=== PATIENT | female | born 1990 | race American Indian/Alaskan Native ===

== ENCOUNTER 2017-09-04 05:23 | Observation (INO) | payer MEDICAID, OTHER ==
--- NOTE | 2017-09-03 14:15 | History and Physical Report ---
History of Present Illness Date of examination: 09/03/17 Chief complaint: incompetent cervix History of present illness: Pt is a 27 year old -Danish female RADHA 03/10/18 at 13w2d who presents for Bell Cerclage placement secondary to h/o cervical incompetence in a previous . Past History Past Medical History: seizure (2014 (two) and in childhood; previously on Keppra ) Past Surgical History: TEACHING ARTIST/uterine surgery (cerclage in 2007) Family/Genetic History: none Social history: no significant social history - Obstetrical History Expected Date of Delivery: 03/10/18 Actual Gestation: 13 Week(s) 1 Day(s) : 4 Para: 0 Hx # Term Pregnancies: 0 Number of Pregnancies: 1 Spontaneous Abortions: 0 Induced : 2 Number of Living Children: 0 Medications and Allergies Allergies Allergy/AdvReac Type Severity Reaction Status Date / Time Latex, Natural Rubber Allergy Rash Verified 12/03/14 13:40 Home Medications Medication Instructions Recorded Confirmed Last Taken Type Levofloxacin [Levaquin] 750 mg PO QDAY #5 tablet 12/06/14 Unknown Rx levETIRAcetam [Keppra TAB] 500 mg PO BID #60 tablet 12/06/14 Unknown Rx Review of Systems All systems: negative - Physical Exam Breasts: Positive: deferred Cardiovascular: Regular rate Lungs: Positive: Clear to auscultation Abdomen: Positive: soft Uterus: Positive: enlarged (gravid ) Extremities: Positive: normal - Obstetrical FHR: auscultation normal Results All other labs normal. Assessment and Plan A: IUP at 13w2d Incompetent Cervix H/o Seizures P: Proceed with Bell Cerclage and other indicated procedures.
[2017-09-04] MEDS ORDERED: LACTATED RINGERS 1,000 ML IV SCH (06:00)
[2017-09-04 06:37] LABS: Hematocrit 37.3 % (30.3-42.9); Hemoglobin 12.2 gm/dl (10.1-14.3); Mean Corpuscular HGB Conc 33 % (30-34); Mean Corpuscular Hemoglobin 27 pg (28-32); Mean Corpuscular Volume 82 fl (79-97); Platelet Count 290 K/mm3 (140-440); Red Blood Count 4.54 M/mm3 (3.65-5.03); Red Cell Distribution Width 15.5 % (13.2-15.2)
[2017-09-04] MEDS ORDERED: BICITRA ONE (07:22)
[2017-09-04] MEDS ORDERED: REGLAN ONE (07:22)
[2017-09-04] MEDS ORDERED: PEPCID IV ONE (07:23)
--- NOTE | 2017-09-04 07:24 | Anesthesia Day of Surgery ---
Anesthesia Day of Surgery - Day of Surgery Patient Examined: Yes Patient H&P Reviewed: Yes Patient is NPO: Yes
--- NOTE | 2017-09-04 07:24 | Anesthesia Consultation ---
Anesthesia Consult and Med Hx Date of service: 09/04/17 - Airway Anesthetic Teeth Evaluation: Good ROM Head & Neck: Adequate Mental/Hyoid Distance: Adequate Mallampati Class: Class II Intubation Access Assessment: Probably Good - Pre-Operative Health Status ASA Pre-Surgery Classification: ASA3 Proposed Anesthetic Plan: Spinal - Pulmonary Hx Asthma: No - Cardiovascular System Hx Hypertension: No - Central Nervous System Hx Seizures: No Hx Psychiatric Problems: No - Endocrine Hx Renal Disease: No Hx Hypothyroidism: No Hx Hyperthyroidism: No - Hematic Hx Anemia: No Hx Sickle Cell Disease: No - Other Systems Hx Alcohol Use: No Hx Obesity: Yes (BMI 42.4) - Additional Comments Anesthesia Medical History Comments: cervical incompetence
[2017-09-04] MEDS ORDERED: BICITRA PO ONE (08:00)
[2017-09-04] MEDS ORDERED: SODIUM CHLORIDE FLUSH SYRINGE 10 ML IV PRN (08:00)
[2017-09-04] MEDS ORDERED: PEPCID IV NR (08:00)
[2017-09-04] MEDS ORDERED: REGLAN IV NR (08:00)
[2017-09-04] MEDS ORDERED: NEO SYNEPHRINE/NS Syringe(OR USE) IV ONE ×3 (08:32)
[2017-09-04] MEDS ORDERED: NACL 0.9% 1000 ML 1,000 ML ONE (08:37)
[2017-09-04] MEDS ORDERED: WATER FOR IRRIG STERILE IR ONE (08:40)
[2017-09-04] MEDS ORDERED: PHENERGAN PR PRN (09:00)
[2017-09-04] MEDS ORDERED: ZOFRAN IV PRN (09:00)
[2017-09-04] MEDS ORDERED: NARCAN 0.4 MG/1 ML IV PRN (09:00)
[2017-09-04] MEDS ORDERED: PHENERGAN PO PRN (09:00)
--- NOTE | 2017-09-04 10:27 | Post Operative Note ---
Pre-op diagnosis: 1) IUP at 13w2d 2) Incompetent Cervix Post-op diagnosis: same Findings: 1) Cervical length approximately 2 cm
--- NOTE | 2017-09-04 10:30 | Ultrasound Report ---
ULTRASOUND OB LIMITED History: well-being, check for viability Technique: Transabdominal ultrasound with Doppler interrogation. Gestation: Single Heart Rate: 159 BPM
--- NOTE | 2017-09-04 10:45 | Operative Report ---
Operative Report Operative Report: Date of procedure: September 04, 2017 Preoperative diagnosis: 1) IUP at 13w2d 2) Incompetent Cervix 3) Morbid Obesity Postoperative diagnosis: Same Procedure: Bell Cerclage Surgeon: Erin Subramanian M.D. Findings: External os 1 cm dilated on speculum exam Anesthesia: Spinal EBL: 50 mL Urine output: 200 mL Specimens: None Drains: Schuler to gravity Complications: None. Counts correct 2 Disposition: Stable to recovery Indication for procedure: The patient is a 27-year-old -Montenegr[place] female at 13w2d who presents for cerclage placement secondary to history of incompetent cervix. Operation in detail: After the risks, benefits, alternatives and complications of the procedure were explained to the patient, she gave informed consent for the procedure. FHTs were documented prior to the procedure. She was subsequently taken to the operating room with her IV noted to be running. Spinal anesthesia was administered without some difficulty. She was then placed in high lithotomy position and prepped and draped in normal sterile fashion. A timeout was performed. A schuler catheter was placed to drain the bladder. An open-sided speculm was placed into the patient's vagina for adequate visualization of the cervix, with intermittent use of Onel retractors for additional exposure. Ring forceps were placed on the anterior and posterior lips of the cervix. A #1 Prolene suture was inserted through the cervical mucosa starting at the 12 o'clock position. A circumferential stitch was placed in a purse-string fashion ending at the 12 o'clock position. Multiple knots of the #1 Prolene suture were tied to secure the suture. There is no evidence of any active bleeding or leakage of fluid. All instruments were then removed from the vagina. The procedure was ended. The patient was then placed in the dorsal supine position and taken to the recovery room in stable condition. All instrument, lap and needle counts were correct 2. An ultrasound has been ordered to follow the procedure.
--- NOTE | 2017-09-04 10:45 | Short Stay Summary ---
Short Stay Documentation Date of service: 09/04/17 - History H&P: dictated Social history: no significant social history - Allergies and Medications Current Medications: Allergies Latex, Natural Rubber Allergy (Verified 12/03/14 13:40) Rash Home Medications Medication Instructions Recorded Confirmed Last Taken Type Levofloxacin [Levaquin] 750 mg PO QDAY #5 tablet 12/06/14 Unknown Rx levETIRAcetam [Keppra TAB] 500 mg PO BID #60 tablet 12/06/14 Unknown Rx HYDROcodone/APAP 5-325 [[place] 1 each PO Q6HR PRN #30 tablet 09/04/17 Unknown Rx 5/325] Active Medications Lactated Ringer's (Lactated Ringers) 1,000 mls @ 100 mls/hr IV DIRECT OLMAN Last Admin: 09/04/17 07:15 Dose: 100 mls/hr Naloxone HCl (Narcan 0.4 Mg/1 Ml) 0.2 mg IV Q2MIN PRN PRN Reason: Res Rate </= 8 or 02 SAT < 92% Ondansetron HCl (Zofran) 4 mg IV Q8H PRN PRN Reason: Nausea And Vomiting Promethazine HCl (Phenergan) 25 mg PO Q6H PRN PRN Reason: Nausea And Vomiting Promethazine HCl (Phenergan) 25 mg OK Q6H PRN PRN Reason: Nausea And Vomiting Sodium Chloride (Sodium Chloride Flush Syringe 10 Ml) 10 ml IV PRN PRN PRN Reason: flush - Physical exam Breasts: deferred - Brief post op/procedure progress note Date of procedure: 09/04/17 Pre-op diagnosis: 1) IUP at 13w2d 2) Incompetent Cervix Post-op diagnosis: same Procedure: Bell Cerclage Anesthesia: spinal Findings: External os 1 cm dilated on speculum exam Surgeon: BOWEN SUBRAMANIAN Estimated blood loss: 50-100ml (50 mL) Pathology: none Condition: stable - Hospital course Hospital course: The patient was admitted for Bell cerclage placement and tolerated the procedure well. She had an ultrasound after the procedure which showed viability. She was observed until she is able to ambulate and void without difficulty. She will follow-up in the office in [address] Subramanian. - Disposition Condition at discharge: Stable Disposition: DC- TO HOME OR SELFCARE - Discharge Diagnoses (1) H/O incompetent cervix, currently Status: Acute (2) Status: Acute Qualifiers: Weeks of gestation: 13 weeks Qualified Code(s): Z3A.13 - 13 weeks gestation of (3) Morbid obesity Status: Acute Short Stay Discharge Plan Activity: other (Nothing in vagina for remainder of ; no baths for at least 4 weeks ) Weight Bearing Status: Full Weight Bearing (though pt is to be on modified bed rest) Diet: regular Additional Instructions: You have been scheduled by your provider for a follow up appointment on Tuesday, September 12, 2017 at 2:15pm. Please make sure to keep this appointment. Spotting, cramping or painful urination are normal for 3-5 days after the procedure. If these symptoms are severe or persist longer than 5 days, please call your doctor. Follow up with: BOWEN SUBRAMANIAN MD [Primary Care Provider] - 7 Days Prescriptions: HYDROcodone/APAP 5-325 [[place] 5/325] 1 each PO Q6HR PRN #30 tablet PRN Reason: Pain
[2017-09-04] MEDS ORDERED: NORCO 5/325 PO PRN (11:30)
[2017-09-04 13:06] VITALS: BP 101/53
== END 2017-09-04 15:24 | disposition home or self-care (01) ==
LOC: APU 05:24 → LD 09:50
PROVIDERS: ADMIT Obstetrics & Gynecology; ATTEND Obstetrics & Gynecology
DX: O34.31 Maternal care for cervical incompetence, first trimester (principal); E66.01 Morbid (severe) obesity due to excess calories; Z68.41 Body mass index [BMI] 40.0-44.9, adult; Z3A.13 13 weeks gestation of pregnancy
CPT/HCPCS: 36415; 59320; 76815; 85027; 86850; 86900; 86901; G0378; G0379; J2765; J7030; J7120; J2370; J2590

== ENCOUNTER 2017-09-23 16:50 | Emergency (ER) | payer MEDICAID ==
[2017-09-23 18:59] VITALS: BP 124/45
[2017-09-23 19:13] LABS: Basophils % (Auto) 0.4 % (0.0-1.8); Eosinophils # (Auto) 0.2 K/mm3 (0.0-0.4); Eosinophils % (Auto) 1.4 % (0.0-4.3); Hematocrit 36.3 % (30.3-42.9); Lymphocytes # (Auto) 2.1 K/mm3 (1.2-5.4); Lymphocytes % (Auto) 18.3 % (13.4-35.0); Mean Corpuscular HGB Conc 33 % (30-34); Mean Corpuscular Hemoglobin 27 pg (28-32); Mean Corpuscular Volume 81 fl (79-97); Monocytes # (Auto) 0.8 K/mm3 (0.0-0.8); Monocytes % (Auto) 7.1 % (0.0-7.3); Platelet Count 284 K/mm3 (140-440); Red Blood Count 4.47 M/mm3 (3.65-5.03); Red Cell Distribution Width 14.8 % (13.2-15.2)
[2017-09-23 19:25] LABS: Alanine Aminotransferase 32 units/L (7-56); Albumin 3.5 g/dL (3.9-5); BUN/Creatinine Ratio 14; Blood Urea Nitrogen 7 mg/dL (7-17); Hemolysis Index 4
[2017-09-23 21:14] LABS: Bacteria,Urine 4+ /HPF (Negative); Bilirubin,Urine NEG (Negative); Blood,Urine NEG (Negative); Color,Urine Yellow (Yellow); Mucus,Urine 1+ /HPF; Protein,Urine <15 mg/dL mg/dL (Negative); Urobilinogen,Urine < 2.0 mg/dL (<2.0)
--- NOTE | 2017-09-24 00:11 | Ultrasound Report ---
FINAL REPORT EXAM: US OB TRANSVAGINAL HISTORY: 16 weeks post circlage cramping TECHNIQUE: Transvaginal imaging was obtained of the pelvis along with Doppler interrogation of the uterus. FINDINGS: There is a single viable intrauterine with an estimated gestational age of 15 weeks 4 days based on sonographic criteria. The heart rate is 174 BPM. The gestational sac is normal in configuration. The placenta is posterior in position and is grade 0. The fetus is in cephalic presentation. The cervical length is 3.4 cm and is closed. Complete survey of organs was not obtained. Free fluid is not seen. IMPRESSION: Single viable IUP, 15 weeks 4 days. heart is 174 BPM. Cervical length is 3.4 cm and is closed.
--- NOTE | 2017-09-24 00:31 | Ultrasound Report ---
FINAL REPORT EXAM: US OB > = 14 WEEKS FETUS HISTORY: 16 weeks post circlage cramping TECHNIQUE: Transabdominal imaging was obtained of the pelvis along with Doppler interrogation of the uterus and adnexa. FINDINGS: There is an intrauterine gestational sac containing an embryo corresponding to a 15 week 4 day IUP. The heart rate is 174 BPM. The cervix is closed. The cervical length is 3.4 cm. The placenta is posterior position and is grade 0. The fetus is in cephalic presentation. A complete survey of organs was not obtained. Free fluid is not seen. IMPRESSION: Single viable IUP, 15 weeks 4 days. heart is 174 BPM. There is cervix is closed. The cervical length is 3.4 cm.
[2017-09-24] MEDS ORDERED: TYLENOL PO ONE (01:51)
--- NOTE | 2017-09-24 01:58 | Emergency Department Report ---
HPI - General Chief Complaint: Abdominal Pain Time Seen by Provider: 09/24/17 01:33 - HPI HPI: The patient's 27-year-old female , EGA 15 weeks, presents for evaluation of abdominal pain. The patient reports lower abdominal pain for the past 2 days , cramping in quality, mild in severity, exacerbated with movement. The patient denies trauma to the abdomen, fever, chills, night sweats, diarrhea, blood in the stool, dark tarry stool, dysuria, hematuria, flank pain, vaginal bleeding, genital discharge, inability to pass flatus. 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 - Surgical History Past Surgical History?: Yes - Social History Smoking Status: Never Smoker - Medications Home Medications: Home Medications Medication Instructions Recorded Confirmed Last Taken Type Levofloxacin [Levaquin] 750 mg PO QDAY #5 tablet 12/06/14 Unknown Rx levETIRAcetam [Keppra TAB] 500 mg PO BID #60 tablet 12/06/14 Unknown Rx HYDROcodone/APAP 5-325 [[place] 1 each PO Q6HR PRN #30 tablet 09/04/17 Unknown Rx 5/325] Acetaminophen [Tylenol] 1,000 mg PO Q8HR #30 tablet 09/24/17 Unknown Rx Pnv No.95/Ferrous Fum/Folic AC 1 each PO QDAY #31 tablet 09/24/17 Unknown Rx [ Vitamin Tablet] ED Review of Systems ROS: Stated complaint: 16WKS PREG/ABD PAIN Other details as noted in HPI Constitutional: denies: fever ENT: denies: throat or neck pain Respiratory: denies: cough, shortness of breath Cardiovascular: denies: chest pain Endocrine: denies unexplained weight loss or gain Gastrointestinal: reports abdominal pain, nausea Genitourinary: denies: dysuria Musculoskeletal: denies: leg swelling Skin: denies: rash Neurological: denies: headache Hematological/Lymphatic: denies: easy bleeding or easy bruising Psych: denies sadness or hopelessness Physical Exam - Physical Exam Vital Signs: Vital Signs 09/23/17 18:57 Temperature 98.5 F Pulse Rate 87 Respiratory 16 Rate Blood Pressure 124/45 O2 Sat by Pulse 99 Oximetry Physical Exam: General: well-nourished, well-developed, no acute distress Head: Normocephalic, atraumatic Eyes: normal sclera ENT: Mucous membranes are pink and moist Neck: trachea midline, neck supple, No neck stiffness, no cervical adenopathy Respiratory: Breath sounds equal bilaterally, no wheezing, rales, or rhonchi Cardio: S1 and S2 present, no murmurs, rubs, gallops, capillary refill is brisk Abdomen: Normoactive bowel sounds, soft abdomen, suprapubic tenderness to palpation present, no pain at McBurney's point, Moran sign negative, no rigidity, no guarding or rebound tenderness Musc: No pitting edema Skin: No rash Neuro: no facial drooping, normal speech Psych: Normal affect ED Course Vital Signs 09/23/17 18:57 Temperature 98.5 F Pulse Rate 87 Respiratory 16 Rate Blood Pressure 124/45 O2 Sat by Pulse 99 Oximetry ED Medical Decision Making - Lab Data Result diagrams: 09/23/17 19:02 09/23/17 19:02 - Medical Decision Making The patient was seen and examined by myself. The patient is placed on a brick loader and continuous pulse ox. On initial evaluation, the patient was found to be in no distress. Evaluation orders were placed. The patient given a tablet of Tylenol for her pain. Lab results exhibited elevated beta hCG, and otherwise were not remarkable. Ultrasound of the pelvis reveals a live intrauterine with normal heart rate. The patient was reevaluated and reported that their symptoms were improved. The patient is stable for discharge with outpatient follow-up. The patient is given follow-up and return instructions. The patient expressed understanding and agreed with the plan. The patient is discharged in stable condition. Critical care attestation.: If time is entered above; I have spent that time in minutes in the direct care of this critically ill patient, excluding procedure time. ED Disposition Clinical Impression: Abdominal pain during in second trimester, Acute abdominal pain in right lower quadrant Disposition: - TO HOME OR SELFCARE Is pt being admited?: No Does the pt Need Aspirin: No Condition: Stable Instructions: Abdominal Pain (ED), Abdominal Pain in (ED) Referrals: CARLOS ARROYO MD [Primary Care Provider] - 3-5 Days Time of Disposition: 01:55
== END 2017-09-24 02:15 | disposition home or self-care (01) ==
LOC: ED 16:50
DX: O26.892 Other specified pregnancy related conditions, second trimester (principal); R10.31 Right lower quadrant pain; Z3A.16 16 weeks gestation of pregnancy
CPT/HCPCS: 36415; 76805; 76817; 80053; 81001; 84702; 84703; 85025; 99284

== ENCOUNTER 2017-10-26 13:15 | Outpatient (CLI) | payer MEDICAID ==
[2017-10-26] MEDS ORDERED: LACTATED RINGERS 500 ML IV ONE (13:58)
[2017-10-26 14:55] LABS: Bilirubin,Urine NEG (Negative); Blood,Urine NEG (Negative); Color,Urine Straw (Yellow); Mucus,Urine FEW /HPF; Protein,Urine <15 mg/dL mg/dL (Negative); Urobilinogen,Urine < 2.0 mg/dL (<2.0); WBC,Urine < 1.0 /HPF (0.0-6.0)
== END 2017-10-26 15:30 | disposition home or self-care (01) ==
LOC: TRG 13:15 → LD 13:16 → TRG 15:30
PROVIDERS: ATTEND Obstetrics & Gynecology
DX: O47.02 False labor before 37 completed weeks of gestation, second trimester (principal); Z3A.20 20 weeks gestation of pregnancy
CPT/HCPCS: 81001

== ENCOUNTER 2017-11-12 20:23 | Outpatient (CLI) | payer MEDICAID ==
[2017-11-12] MEDS ORDERED: CELESTONE SOLUSPAN IM ONE (22:00)
== END 2017-11-12 21:20 | disposition home or self-care (01) ==
LOC: TRG 20:23
PROVIDERS: ATTEND Obstetrics & Gynecology
DX: O47.02 False labor before 37 completed weeks of gestation, second trimester (principal); Z3A.23 23 weeks gestation of pregnancy
CPT/HCPCS: 96372; J0702

== ENCOUNTER 2017-11-13 20:29 | Outpatient (CLI) | payer MEDICAID ==
[2017-11-13] MEDS ORDERED: CELESTONE SOLUSPAN IM ONE (21:00)
== END 2017-11-13 21:20 | disposition home or self-care (01) ==
LOC: TRG 20:29
PROVIDERS: ATTEND Obstetrics & Gynecology
DX: O47.02 False labor before 37 completed weeks of gestation, second trimester (principal); Z3A.23 23 weeks gestation of pregnancy
CPT/HCPCS: 96372; J0702

== ENCOUNTER 2017-12-08 12:49 | Outpatient (CLI) | payer MEDICAID ==
[2017-12-08] MEDS ORDERED: LACTATED RINGERS 500 ML IV ONE (12:57)
[2017-12-08 13:18] VITALS: BP 127/59
[2017-12-08] MEDS ORDERED: SUDAFED PO PRN (13:53)
[2017-12-08] MEDS ORDERED: ROBITUSSIN PO PRN (13:54)
[2017-12-08] MEDS ORDERED: AYR SALINE NS PRN (13:55)
== END 2017-12-08 17:32 | disposition home or self-care (01) ==
LOC: TRG 12:49
PROVIDERS: ATTEND Obstetrics & Gynecology
DX: O47.02 False labor before 37 completed weeks of gestation, second trimester (principal); Z3A.26 26 weeks gestation of pregnancy
CPT/HCPCS: 59025

== ENCOUNTER 2018-01-02 11:31 | Inpatient (IN) | payer MEDICAID ==
[2018-01-02] MEDS ORDERED: ALUM-MAG HYDROX-SIMETH 200-200-20MG/5ML PO PRN (14:21)
[2018-01-02] MEDS ORDERED: COLACE PO PRN (14:21)
[2018-01-02] MEDS ORDERED: BENADRYL PO PRN (14:21)
[2018-01-02] MEDS ORDERED: GUAIFENESIN DM SYRUP PO PRN (14:21)
[2018-01-02] MEDS ORDERED: DEEP SEA NS PRN (14:21)
[2018-01-02] MEDS ORDERED: MYLICON PO PRN (14:21)
[2018-01-02] MEDS ORDERED: TYLENOL PO PRN (14:21)
[2018-01-02] MEDS ORDERED: ZOFRAN IV PRN (14:21)
[2018-01-02] MEDS ORDERED: LACTATED RINGERS 1,000 ML ONE (14:30)
[2018-01-02] MEDS ORDERED: MAGNESIUM SULFATE 40GM/1000ML 40 GM/1,000 ML BAG IV SCH (15:00)
[2018-01-02] MEDS ORDERED: MAGNESIUM SULFATE 4GM/100ML 4 GM/100 ML BAG IV ONE (15:00)
[2018-01-02] MEDS ORDERED: LACTATED RINGERS 1,000 ML IV SCH (15:00)
[2018-01-02] MEDS: CELESTONE SOLUSPAN IM SCH (15:40)
--- NOTE | 2018-01-02 17:36 | Procedure Note ---
OB Delivery Note - Delivery Date of Delivery: 01/02/18 (6-11.9oz male @ 1706) Surgeon: FREDDIE COBOS Estimated blood loss: 500cc - Vaginal Delivery presentation: vertex Delivery position: OA Intrapartum events: mult.variable deceleratio Delivery induction: none Delivery augmentation: pitocin Delivery monitor: external FHT, external uterine, internal FHT, internal uterine Route of delivery: Indicators for instrumentation: nonreassuring FHR tracing Delivery placenta: spontaneous Delivery cord: 3 umbilical vessels Episiotomy: none Delivery laceration: other (periurtheral, right side wall) Anesthesia: epidural - A at 1 minute: 8 at 5 minutes: 9 Infant Gender: Male (Pushed for viable male. NICU team at delivery. No intervention. Spont lusty cry, placed skin to skin. Spont. [place] placenta, IV nonfunctional. Pitocin 20u IM. Bleeding continued, fundus messaged firm, 3 below, U, ML. Bleeding continued. Bimanuel compression while awaiting methergine. bleeding greatly decreased to scant Lacerations as noted. Nasal flaring noted. Respiration called back to examine. CPT done. and mother stable)
--- NOTE | 2018-01-02 17:36 | Ultrasound Report ---
FINAL REPORT PROCEDURE: US OB BPP WO NON-STRESS TECHNIQUE: Sonographic evaluation for breathing, movement, tone, and amniotic fluid volume was performed. CPT 38138 HISTORY: 30 wks, shortened cervix, contractions COMPARISON: No prior studies are available for comparison. FINDINGS: Amniotic fluid volume: Normal-score 2. At least one vertical pocket > 2 cm or more in vertical axis. breathing: Normal-score 2. movement: Normal-score 2. tone: Normal. Score: 8 of 8. heart rate of 163 beats per minute is detected. Single living intrauterine gestation visualized currently vertex presentation. Subjectively the amount of amniotic fluid appears normal. IMPRESSION: Biophysical profile score 8/8. heart rate of 163 beats per minute is detected. Single living intrauterine gestation visualized vertex presentation.
--- NOTE | 2018-01-02 17:40 | Ultrasound Report ---
FINAL REPORT PROCEDURE: US TRANSVAGINAL TECHNIQUE: Transvaginal ultrasound of the cervix was performed. HISTORY: . Evaluate cervix length. COMPARISON: Prior Ob ultrasound 09/23/2017 FINDINGS: There is marked funneling and shortening of the cervix. Cervix length is only 3 millimeters. I do not see evidence of placenta previa. IMPRESSION: There is marked funneling and shortening of the cervix now only measuring 3 millimeters. No evidence of placenta previa.
--- NOTE | 2018-01-02 17:43 | History and Physical Report ---
History of Present Illness Date of examination: 01/02/18 Date of admission: 01/02/18 13:21 History of present illness: 27 yo LMP EDC 01/15/18 @ 38.1 weeks gestation presented to office advanced cervical dilatation with SROM-clear fluid. Sent for induction of labor. First trimester entry into care at 8 weeks gestation. course complicated by + CT with negative SRINIVASA and PTC with BTZ x 2. GBS negative. 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: chlamydia Social history: no significant social history, single - Obstetrical History Expected Date of Delivery: 01/15/18 Actual Gestation: 38 Week(s) 1 Day(s) : 4 Medications and Allergies Allergies Allergy/AdvReac Type Severity Reaction Status Date / Time Latex, Natural Rubber Allergy Rash Verified 12/03/14 13:40 Home Medications Medication Instructions Recorded Confirmed Last Taken Type No Known Home Medications [No 11/13/17 11/13/17 Unknown History Reported Home Medications] Active Meds: Active Medications Acetaminophen (Tylenol) 650 mg PO Q4H PRN PRN Reason: Pain MILD(1-3)/Fever >100.5/SHAH Al Hydrox/Mg Hydrox/Simethicone (Alum-Mag Hydrox-Simeth [phone]/5ml) 30 ml PO Q6H PRN PRN Reason: Indigestion Betamethasone Acet/Betameth SodPhos (Celestone Soluspan) 12 mg IM Q24H OLMAN Stop: 01/03/18 15:01 Last Admin: 01/02/18 15:40 Dose: 12 mg Diphenhydramine HCl (Benadryl) 25 mg PO Q6H PRN PRN Reason: Itching Docusate Sodium (Colace) 100 mg PO Q12H PRN PRN Reason: Constipation Guaifenesin (Guaifenesin Dm Syrup) 10 ml PO Q6H PRN PRN Reason: Cough Lactated Ringer's (Lactated Ringers) 1,000 mls @ 125 mls/hr IV DIRECT OLMAN Lactated Ringer's (Lactated Ringers) 1,000 mls @ 125 mls/hr IV DIRECT OLMAN Magnesium Sulfate (Magnesium Sulfate 40gm/1000ml) 40 gm in 1,000 mls @ 25 mls/ hr IV DIRECT OLMAN Last Admin: 01/02/18 16:00 Dose: 1 gm/hr, 25 mls/hr Multivitamins/Iron/Calcium ( Vitamin) 1 each PO QDAY [facility] Ondansetron HCl (Zofran) 4 mg IV Q6H PRN PRN Reason: Nausea And Vomiting Simethicone (Mylicon) 80 mg PO Q6H PRN PRN Reason: Gas pain Sodium Chloride (Deep Sea) 2 spray NS Q4H PRN PRN Reason: Congestion Review of Systems All systems: negative Genitourinary: normal appearance, leakage of fluid, contractions, no genital sores - Vital Signs Vital signs: Vital Signs Pulse BP 89 121/66 01/02/18 13:56 01/02/18 13:56 Temp Pulse Resp BP Pulse Ox 98.1 F 113 H 14 131/75 97 01/02/18 14:40 01/02/18 17:39 01/02/18 14:40 01/02/18 17:35 01/02/18 17:39 - Physical Exam Genitourinary (Female): Positive: normal external genitalia, normal perenium - Obstetrical FHR: category 1 Uterine Contraction Monitor Mode: External Cervical Dilatation: 4 Cervical Effacement Percentage: 50 station: -2 Uterine Contraction Pattern: Irregular Uterine Tone Measurement Phase: Resting Uterine Contraction Intensity: Strong/Firm Results All other labs normal.
--- NOTE | 2018-01-02 17:49 | Ultrasound Report ---
FINAL REPORT PROCEDURE: US OB FOLLOW UP TECHNIQUE: Real-time limited sonographic examination was performed for evaluation of size, position, heartbeat, fluid volume for each fetus with image documentation (1 or more fetuses). CPT 95804 HISTORY: ,CONTRACTIONS COMPARISON: Prior ultrasound 09/23/2017 FINDINGS: There is a single living intrauterine gestation currently in vertex presentation with rate of 158 beats per minute. Placenta is located fundal and grade 1. No evidence of abruption placenta previa. The cervix is markedly shortened only measuring 3 millimeters in there is funneling of the cervix. Subjectively the amount of amniotic fluid appears normal. The index measures 20.6 centimeters which is within normal limits. Detailed exam of the anatomy was not performed as this was not requested. No gross abnormality is visualized. MEASUREMENTS BPD: 7.5 centimeter equals 30 weeks 1 day. HC: 27.8 centimeter equals 30 weeks 3 days. AC: 25.9 centimeter equals 30 weeks 0 days. FL: 6.0 centimeter equals 31 weeks 2 days. Average sonographic age by today's study 30 weeks 3 days. Estimated weight 1576 grams +/-230 3 grams equals 3 pounds 8 ounces +/-8 ounces. IMPRESSION: Single living intrauterine gestation currently visualize vertex presentation. Average sonographic age by today's study 30 weeks 3 days placing the EDC at 03/10/2018 plus or minus 3 weeks. There is marked funneling of the cervix. The cervix length is markedly shortened only measuring 3 millimeters on today's study. Subjectively and by amniotic fluid index the amount of amniotic fluid today appears normal.
[2018-01-02 18:26] LABS: Basophils % (Auto) 0.2 % (0.0-1.8); Eosinophils # (Auto) 0.1 K/mm3 (0.0-0.4); Eosinophils % (Auto) 0.6 % (0.0-4.3); Hematocrit 35.8 % (30.3-42.9); Hemoglobin 11.7 gm/dl (10.1-14.3); Lymphocytes % (Auto) 8.6 % (13.4-35.0); Mean Corpuscular HGB Conc 33 % (30-34); Mean Corpuscular Volume 79 fl (79-97); Monocytes # (Auto) 0.3 K/mm3 (0.0-0.8); Monocytes % (Auto) 2.4 % (0.0-7.3); Platelet Count 275 K/mm3 (140-440); Red Blood Count 4.55 M/mm3 (3.65-5.03); Red Cell Distribution Width 14.9 % (13.2-15.2)
[2018-01-02 18:27] LABS: Mean Corpuscular Hemoglobin 26 pg (28-32)
--- NOTE | 2018-01-02 18:45 | Consultation ---
History of Present Illness Consult date: 01/02/18 Past History - Obstetrical History : 4 Medications and Allergies Allergies Allergy/AdvReac Type Severity Reaction Status Date / Time Latex, Natural Rubber Allergy Rash Verified 12/03/14 13:40 Home Medications Medication Instructions Recorded Confirmed Last Taken Type No Known Home Medications [No 11/13/17 01/02/18 Unknown History Reported Home Medications] Active Meds: Active Medications Acetaminophen (Tylenol) 650 mg PO Q4H PRN PRN Reason: Pain MILD(1-3)/Fever >100.5/SHAH Al Hydrox/Mg Hydrox/Simethicone (Alum-Mag Hydrox-Simeth [phone]/5ml) 30 ml PO Q6H PRN PRN Reason: Indigestion Betamethasone Acet/Betameth SodPhos (Celestone Soluspan) 12 mg IM Q24H OLMAN Stop: 01/03/18 15:01 Last Admin: 01/02/18 15:40 Dose: 12 mg Diphenhydramine HCl (Benadryl) 25 mg PO Q6H PRN PRN Reason: Itching Docusate Sodium (Colace) 100 mg PO Q12H PRN PRN Reason: Constipation Guaifenesin (Guaifenesin Dm Syrup) 10 ml PO Q6H PRN PRN Reason: Cough Lactated Ringer's (Lactated Ringers) 1,000 mls @ 125 mls/hr IV DIRECT OLMAN Lactated Ringer's (Lactated Ringers) 1,000 mls @ 125 mls/hr IV DIRECT OLMAN Magnesium Sulfate (Magnesium Sulfate 40gm/1000ml) 40 gm in 1,000 mls @ 25 mls/ hr IV DIRECT OLMAN Last Admin: 01/02/18 16:00 Dose: 1 gm/hr, 25 mls/hr Multivitamins/Iron/Calcium ( Vitamin) 1 each PO QDAY OLMAN Ondansetron HCl (Zofran) 4 mg IV Q6H PRN PRN Reason: Nausea And Vomiting Simethicone (Mylicon) 80 mg PO Q6H PRN PRN Reason: Gas pain Sodium Chloride (Deep Sea) 2 spray NS Q4H PRN PRN Reason: Congestion - Vital Signs Vital signs: Vital Signs Pulse BP 89 121/66 01/02/18 13:56 01/02/18 13:56 Temp Pulse Resp BP Pulse Ox 98.1 F 112 H 16 128/81 98 01/02/18 17:35 01/02/18 18:44 01/02/18 18:38 01/02/18 18:38 01/02/18 18:44 Results Result Diagrams: 01/02/18 18:15 Abnormal lab results 01/02/18 Range/Units 18:15 WBC 11.9 H (4.5-11.0) K/mm3 MCH 26 L (28-32) pg Lymph % (Auto) 8.6 L (13.4-35.0) % Lymph # 1.0 L (1.2-5.4) K/mm3 Seg Neutrophils % 88.2 H (40.0-70.0) % Seg Neutrophils # 10.5 H (1.8-7.7) K/mm3 All other labs normal. Assessment and Plan AMF Pt seen Full consult to follow
[2018-01-02 19:30] LABS: Bilirubin,Urine NEG (Negative); Blood,Urine LG (Negative); Color,Urine Straw (Yellow); Mucus,Urine FEW /HPF; Protein,Urine <15 mg/dL mg/dL (Negative); Urobilinogen,Urine < 2.0 mg/dL (<2.0); WBC,Urine < 1.0 /HPF (0.0-6.0)
--- NOTE | 2018-01-02 23:08 | History and Physical Report ---
History of Present Illness Date of examination: 01/02/18 Date of admission: 01/02/18 13:21 Chief complaint: contractions History of present illness: Pt is a 27 year old -[place] female RADHA 03/10/18 at 30w3d who presents with c/o contractions. She has had care at [facility] which has bee complicated by a history of cervical incompetence with loss, s/p cerclage on 09/04/17 with current cervical shortening and funneling; h/o labor receiving 17-OH progesterone injections and Procardia tocolysis, genital herpes without lesion or prodrome, palpitations s/ p Cardiology evaluation revealing PVCs, and sciatica. She received two doses of betamethasone on November 12 and November 13, 2017. She is comanaged by [facility] for the aforementioned issues. A fibronectin collected earlier this week was positive. 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 (cerclage x 2( 2007, 09/04/17)), D&C [employer] History: herpes Family/Genetic History: none Social history: single - Obstetrical History Expected Date of Delivery: 03/10/18 Actual Gestation: 30 Week(s) 3 Day(s) : 4 Para: 0 Hx # Term Pregnancies: 0 Number of Pregnancies: 1 Spontaneous Abortions: 0 Induced : 2 Number of Living Children: 0 Medications and Allergies Allergies Allergy/AdvReac Type Severity Reaction Status Date / Time Latex, Natural Rubber Allergy Rash Verified 12/03/14 13:40 Home Medications Medication Instructions Recorded Confirmed Last Taken Type No Known Home Medications [No 11/13/17 01/02/18 Unknown History Reported Home Medications] Active Meds: Active Medications Acetaminophen (Tylenol) 650 mg PO Q4H PRN PRN Reason: Pain MILD(1-3)/Fever >100.5/SHAH Al Hydrox/Mg Hydrox/Simethicone (Alum-Mag Hydrox-Simeth [id number]/5ml) 30 ml PO Q6H PRN PRN Reason: Indigestion Betamethasone Acet/Betameth SodPhos (Celestone Soluspan) 12 mg IM Q24H OLMAN Stop: 01/03/18 15:01 Last Admin: 01/02/18 15:40 Dose: 12 mg Diphenhydramine HCl (Benadryl) 25 mg PO Q6H PRN PRN Reason: Itching Last Admin: 01/02/18 22:17 Dose: 25 mg Docusate Sodium (Colace) 100 mg PO Q12H PRN PRN Reason: Constipation Guaifenesin (Guaifenesin Dm Syrup) 10 ml PO Q6H PRN PRN Reason: Cough Lactated Ringer's (Lactated Ringers) 1,000 mls @ 125 mls/hr IV DIRECT OLMAN Lactated Ringer's (Lactated Ringers) 1,000 mls @ 125 mls/hr IV DIRECT OLMAN Magnesium Sulfate (Magnesium Sulfate 40gm/1000ml) 40 gm in 1,000 mls @ 25 mls/ hr IV DIRECT OLMAN Last Admin: 01/02/18 16:00 Dose: 1 gm/hr, 25 mls/hr Multivitamins/Iron/Calcium ( Vitamin) 1 each PO QDAY OLMAN Ondansetron HCl (Zofran) 4 mg IV Q6H PRN PRN Reason: Nausea And Vomiting Simethicone (Mylicon) 80 mg PO Q6H PRN PRN Reason: Gas pain Sodium Chloride (Deep Sea) 2 spray NS Q4H PRN PRN Reason: Congestion Review of Systems All systems: negative - Vital Signs Vital signs: Vital Signs Pulse BP 89 121/66 01/02/18 13:56 01/02/18 13:56 Temp Pulse Resp BP Pulse Ox 98.1 F 99 H 14 137/88 96 01/02/18 17:35 01/02/18 23:05 01/02/18 19:00 01/02/18 22:35 01/02/18 23:05 - Physical Exam Breasts: Positive: deferred Cardiovascular: Regular rate Lungs: Positive: Clear to auscultation Abdomen: Positive: soft (obese, gravid) Genitourinary (Female): Positive: normal external genitalia Extremities: Positive: normal - Obstetrical FHR: auscultation normal Uterine Contraction Monitor Mode: External Uterine Contraction Pattern: Irregular Uterine Tone Measurement Phase: Resting Uterine Contraction Intensity: Mild Results Result Diagrams: 01/02/18 18:15 Abnormal lab results 01/02/18 01/02/18 Range/Units 18:15 19:09 WBC 11.9 H (4.5-11.0) K/mm3 MCH 26 L (28-32) pg Lymph % (Auto) 8.6 L (13.4-35.0) % Lymph # 1.0 L (1.2-5.4) K/mm3 Seg Neutrophils % 88.2 H (40.0-70.0) % Seg Neutrophils # 10.5 H (1.8-7.7) K/mm3 Magnesium 3.10 H (1.7-2.3) mg/dL All other labs normal. Ultrasound: report reviewed Assessment and Plan A: IUP at 30w3d sp 2 doses of betamethasone at 24 wks contractions Incompetent Cervix with cerclage in situ Extremely short cervix- cervical length 3 mm today H/o incompetent cervix in prior H/o labor on 17 OH Progesterone injections weekly Obesity Genital Herpes P: Admit to antepartum service for observation. Mag sulfate for neuroprotection Magnesium levels every 6 hours Betamethasone booster MFM consult appreciated
[2018-01-02] MEDS ORDERED: BENADRYL PO ONE (23:25)
[2018-01-03] MEDS: LACTATED RINGERS 1,000 ML IV SCH ×3 (01:25→20:25)
--- NOTE | 2018-01-03 09:24 | Progress Note ---
Assessment and Plan A: IUP at 30w4d sp 2 doses of betamethasone at 24 wks contractions Incompetent Cervix with cerclage in situ Extremely short cervix- cervical length 3 mm H/o incompetent cervix in prior H/o labor on 17 OH Progesterone injections weekly Obesity Genital Herpes P: HD1 PTC observation Mag sulfate for neuroprotection ( 24 hrs) Magnesium levels every 6 hours Betamethasone ( recommneded another series) MFM consult appreciated NICU consult today Subjective - Subjective Date of service: 01/03/18 Patient reports: movement normal, no new complaints, no loss of fluid, no vaginal bleeding, no contractions Objective - Vital Signs Vital Signs: Vital Signs - 12hr 01/02/18 01/02/18 01/02/18 21:26 21:29 21:31 Temperature Pulse Rate 95 H 121 H 98 H Respiratory Rate Blood Pressure Blood Pressure [Right] O2 Sat by Pulse 96 91 96 Oximetry 01/02/18 01/02/18 01/02/18 21:34 21:36 21:40 Temperature Pulse Rate 95 H 109 H 107 H Respiratory 16 Rate Blood Pressure 118/69 Blood Pressure 118/69 [Right] O2 Sat by Pulse 94 95 94 Oximetry 01/02/18 01/02/18 01/02/18 21:41 21:46 21:51 Temperature Pulse Rate 101 H 100 H 98 H Respiratory Rate Blood Pressure Blood Pressure [Right] O2 Sat by Pulse 96 95 96 Oximetry 01/02/18 01/02/18 01/02/18 21:56 21:58 22:01 Temperature Pulse Rate 99 H 94 H 118 H Respiratory Rate Blood Pressure Blood Pressure [Right] O2 Sat by Pulse 96 94 95 Oximetry 01/02/18 01/02/18 01/02/18 22:06 22:09 22:11 Temperature Pulse Rate 108 H 95 H 106 H Respiratory Rate Blood Pressure Blood Pressure [Right] O2 Sat by Pulse 97 94 94 Oximetry 01/02/18 01/02/18 01/02/18 22:16 22:20 22:29 Temperature Pulse Rate 102 H 102 H 92 H Respiratory Rate Blood Pressure Blood Pressure [Right] O2 Sat by Pulse 96 93 94 Oximetry 01/02/18 01/02/18 01/02/18 22:35 22:50 23:04 Temperature Pulse Rate 108 H 103 H 101 H Respiratory 16 Rate Blood Pressure 137/88 Blood Pressure 137/88 [Right] O2 Sat by Pulse 89 96 94 Oximetry 01/02/18 01/02/18 01/02/18 23:05 23:20 23:23 Temperature Pulse Rate 99 H 99 H 110 H Respiratory Rate Blood Pressure Blood Pressure [Right] O2 Sat by Pulse 96 96 91 Oximetry 01/02/18 01/02/18 01/02/18 23:34 23:35 23:50 Temperature Pulse Rate 96 H 102 H 93 H Respiratory 18 Rate Blood Pressure 131/71 Blood Pressure 131/71 [Right] O2 Sat by Pulse 91 96 96 Oximetry 01/02/18 01/03/18 01/03/18 23:59 00:05 00:12 Temperature Pulse Rate 94 H 93 H 102 H Respiratory Rate Blood Pressure Blood Pressure [Right] O2 Sat by Pulse 94 97 94 Oximetry 01/03/18 01/03/18 01/03/18 00:20 00:34 00:35 Temperature 98.1 F Pulse Rate 94 H 89 110 H Respiratory 16 Rate Blood Pressure 131/69 Blood Pressure 131/69 [Right] O2 Sat by Pulse 96 92 97 Oximetry 01/03/18 01/03/18 01/03/18 00:50 01:05 01:11 Temperature Pulse Rate 102 H 99 H 79 Respiratory Rate Blood Pressure Blood Pressure [Right] O2 Sat by Pulse 97 96 94 Oximetry 01/03/18 01/03/18 01/03/18 01:20 01:22 01:34 Temperature Pulse Rate 109 H 101 H 109 H Respiratory 16 Rate Blood Pressure Blood Pressure 160/103 [Right] O2 Sat by Pulse 97 93 97 Oximetry 01/03/18 01/03/18 01/03/18 01:35 01:43 01:49 Temperature Pulse Rate 109 H 91 H 92 H Respiratory Rate Blood Pressure 160/103 Blood Pressure [Right] O2 Sat by Pulse 97 94 94 Oximetry 01/03/18 01/03/18 01/03/18 01:50 01:55 02:05 Temperature Pulse Rate 90 99 H 95 H Respiratory Rate Blood Pressure Blood Pressure [Right] O2 Sat by Pulse 95 94 91 Oximetry 01/03/18 01/03/18 01/03/18 02:11 02:20 02:30 Temperature Pulse Rate 103 H 92 H 91 H Respiratory Rate Blood Pressure Blood Pressure [Right] O2 Sat by Pulse 94 93 94 Oximetry 06/01/03/18 01/03/18 02:34 02:35 02:38 Temperature Pulse Rate 93 H 101 H 93 H Respiratory 16 Rate Blood Pressure 115/68 Blood Pressure 115/68 [Right] O2 Sat by Pulse 96 94 Oximetry 01/03/18 01/03/18 01/03/18 02:50 03:01 03:05 Temperature Pulse Rate 94 H 104 H 91 H Respiratory Rate Blood Pressure Blood Pressure [Right] O2 Sat by Pulse 97 94 97 Oximetry 01/03/18 01/03/18 01/03/18 03:17 03:20 03:32 Temperature Pulse Rate 86 82 83 Respiratory Rate Blood Pressure Blood Pressure [Right] O2 Sat by Pulse 94 94 93 Oximetry 01/03/18 01/03/18 01/03/18 03:34 03:35 03:50 Temperature Pulse Rate 82 84 83 Respiratory 16 Rate Blood Pressure 102/52 Blood Pressure 102/52 [Right] O2 Sat by Pulse 92 92 Oximetry 01/03/18 01/03/18 01/03/18 04:01 04:05 04:06 Temperature Pulse Rate 90 90 89 Respiratory Rate Blood Pressure Blood Pressure [Right] O2 Sat by Pulse 93 91 91 Oximetry 01/03/18 01/03/18 01/03/18 04:13 04:20 04:34 Temperature 98.3 F Pulse Rate 87 88 90 Respiratory 16 Rate Blood Pressure 120/65 Blood Pressure 120/65 [Right] O2 Sat by Pulse 91 90 Oximetry 01/03/18 01/03/18 01/03/18 04:35 04:39 04:50 Temperature Pulse Rate 89 89 89 Respiratory Rate Blood Pressure Blood Pressure [Right] O2 Sat by Pulse 94 91 91 Oximetry 01/03/18 01/03/18 01/03/18 04:55 05:05 05:20 Temperature Pulse Rate 87 89 89 Respiratory Rate Blood Pressure Blood Pressure [Right] O2 Sat by Pulse 91 90 90 Oximetry 01/03/18 01/03/18 01/03/18 05:34 05:35 05:50 Temperature Pulse Rate 88 97 H 92 H Respiratory 16 Rate Blood Pressure 116/67 Blood Pressure 116/67 [Right] O2 Sat by Pulse 93 95 Oximetry 01/03/18 01/03/18 01/03/18 06:05 06:20 06:34 Temperature Pulse Rate 89 89 88 Respiratory 16 Rate Blood Pressure 107/60 Blood Pressure 107/60 [Right] O2 Sat by Pulse 94 95 Oximetry 01/03/18 01/03/18 01/03/18 06:35 06:50 07:03 Temperature Pulse Rate 88 88 100 H Respiratory Rate Blood Pressure Blood Pressure [Right] O2 Sat by Pulse 95 96 83 L Oximetry 01/03/18 01/03/18 01/03/18 07:05 07:20 07:34 Temperature Pulse Rate 103 H 78 82 Respiratory Rate Blood Pressure 99/52 Blood Pressure [Right] O2 Sat by Pulse 97 94 Oximetry 01/03/18 01/03/18 01/03/18 07:35 07:49 07:50 Temperature Pulse Rate 81 86 80 Respiratory Rate Blood Pressure Blood Pressure [Right] O2 Sat by Pulse 94 91 93 Oximetry 01/03/18 01/03/18 01/03/18 08:02 08:05 08:20 Temperature Pulse Rate 82 84 83 Respiratory Rate Blood Pressure Blood Pressure [Right] O2 Sat by Pulse 91 93 95 Oximetry 01/03/18 01/03/18 01/03/18 08:34 08:35 08:50 Temperature Pulse Rate 81 78 84 Respiratory Rate Blood Pressure 105/53 Blood Pressure [Right] O2 Sat by Pulse 94 95 Oximetry 01/03/18 01/03/18 09:05 09:20 Temperature Pulse Rate 79 91 H Respiratory Rate Blood Pressure Blood Pressure [Right] O2 Sat by Pulse 95 97 Oximetry - Exam Breasts: normal Cardiovascular: Regular rate, Normal S1 Lungs: Clear to auscultation, Normal air movement Abdomen: Present: normal appearance, soft, normal bowel sounds. Absent: distention, tenderness, guarding Uterus: Present: normal. Absent: bogginess, tenderness FHR: category 1 - Labs Labs: Abnormal Labs 01/02/18 01/02/18 01/03/18 18:15 19:09 01:21 WBC 11.9 H MCH 26 L Lymph % (Auto) 8.6 L Lymph # 1.0 L Seg Neutrophils % 88.2 H Seg Neutrophils # 10.5 H Magnesium 3.10 H 3.50 H 01/03/18 07:17 WBC MCH Lymph % (Auto) Lymph # Seg Neutrophils % Seg Neutrophils # Magnesium 3.50 H Laboratory Results - last 24 hr 01/02/18 01/02/18 01/02/18 18:00 18:15 19:00 WBC 11.9 H RBC 4.55 Hgb 11.7 Hct 35.8 MCV 79 MCH 26 L MCHC 33 RDW 14.9 Plt Count 275 Lymph % (Auto) 8.6 L [place] % (Auto) 2.4 Eos % (Auto) 0.6 Baso % (Auto) 0.2 Lymph # 1.0 L [place] # 0.3 Eos # 0.1 Baso # 0.0 Seg Neutrophils % 88.2 H Seg Neutrophils # 10.5 H Magnesium Urine Color Straw Urine Turbidity Clear Urine pH 6.0 Ur Specific [place] 1.004 Urine Protein <15 mg/dl Urine Glucose (UA) 150 Urine Ketones Neg Urine Blood Lg Urine Nitrite Neg Urine Bilirubin Neg Urine Urobilinogen < 2.0 Ur Leukocyte Esterase Neg Urine WBC (Auto) < 1.0 Urine RBC (Auto) 1.0 U Epithel Cells (Auto) < 1.0 Urine Mucus Few Blood Type O POSITIVE Antibody Screen Negative 01/02/18 01/03/18 01/03/18 19:09 01:21 07:17 WBC RBC Hgb Hct MCV MCH MCHC RDW Plt Count Lymph % (Auto) [place] % (Auto) Eos % (Auto) Baso % (Auto) Lymph # [place] # Eos # Baso # Seg Neutrophils % Seg Neutrophils # Magnesium 3.10 H 3.50 H 3.50 H Urine Color Urine Turbidity Urine pH Ur Specific [place] Urine Protein Urine Glucose (UA) Urine Ketones Urine Blood Urine Nitrite Urine Bilirubin Urine Urobilinogen Ur Leukocyte Esterase Urine WBC (Auto) Urine RBC (Auto) U Epithel Cells (Auto) Urine Mucus Blood Type Antibody Screen
[2018-01-03] MEDS ORDERED: PRENATAL VITAMIN PO SCH (10:00)
[2018-01-03] MEDS: CELESTONE SOLUSPAN IM SCH (16:22)
--- NOTE | 2018-01-03 16:41 | Consultation ---
History of Present Illness Consult date: 01/03/18 Requesting physician: MARCELLUS ÁLVAREZ Reason for consult: prematurity (30 weeks gestation with incompetent cervix) [place] Documentation - Maternal Info Maternal Blood Type: O (+) positive HbsAg: Negative HIV: Negative RPR/VDRL: Non-reactive Chlamydia: Negative Gonorrhea: Negative Herpes: Positive Group Beta Strep: Unknown Rubella: Immune - information: Height 5 ft Medications and Allergies Allergies Allergy/AdvReac Type Severity Reaction Status Date / Time Latex, Natural Rubber Allergy Rash Verified 12/03/14 13:40 Home Medications Medication Instructions Recorded Confirmed Last Taken Type No Known Home Medications [No 11/13/17 01/02/18 Unknown History Reported Home Medications] Active Meds: Active Medications Acetaminophen (Tylenol) 650 mg PO Q4H PRN PRN Reason: Pain MILD(1-3)/Fever >100.5/SHAH Al Hydrox/Mg Hydrox/Simethicone (Alum-Mag Hydrox-Simeth [phone]/5ml) 30 ml PO Q6H PRN PRN Reason: Indigestion Last Admin: 01/03/18 02:48 Dose: 30 ml Diphenhydramine HCl (Benadryl) 25 mg PO Q6H PRN PRN Reason: Itching Last Admin: 01/02/18 22:17 Dose: 25 mg Docusate Sodium (Colace) 100 mg PO Q12H PRN PRN Reason: Constipation Guaifenesin (Guaifenesin Dm Syrup) 10 ml PO Q6H PRN PRN Reason: Cough Lactated Ringer's (Lactated Ringers) 1,000 mls @ 125 mls/hr IV DIRECT OLMAN Last Admin: 01/03/18 11:58 Dose: 100 mls/hr Lactated Ringer's (Lactated Ringers) 1,000 mls @ 125 mls/hr IV DIRECT OLMAN Magnesium Sulfate (Magnesium Sulfate 40gm/1000ml) 40 gm in 1,000 mls @ 25 mls/ hr IV DIRECT OLMAN Last Admin: 01/02/18 16:00 Dose: 1 gm/hr, 25 mls/hr Multivitamins/Iron/Calcium ( Vitamin) 1 each PO QDAY OLMAN Last Admin: 01/03/18 11:20 Dose: 1 each Ondansetron HCl (Zofran) 4 mg IV Q6H PRN PRN Reason: Nausea And Vomiting Simethicone (Mylicon) 80 mg PO Q6H PRN PRN Reason: Gas pain Sodium Chloride (Deep Sea) 2 spray NS Q4H PRN PRN Reason: Congestion Exam Vital Signs Pulse BP 89 121/66 01/02/18 13:56 01/02/18 13:56 Temp Pulse Resp BP Pulse Ox 98.3 F 96 H 16 125/79 96 01/03/18 04:34 01/03/18 12:01 01/03/18 06:34 01/03/18 12:01 01/03/18 09:50 Results - Laboratory Findings 01/02/18 18:15 Abnormal lab results 01/02/18 01/02/18 01/03/18 Range/Units 18:15 19:09 01:21 WBC 11.9 H (4.5-11.0) K/mm3 MCH 26 L (28-32) pg Lymph % (Auto) 8.6 L (13.4-35.0) % Lymph # 1.0 L (1.2-5.4) K/mm3 Seg Neutrophils % 88.2 H (40.0-70.0) % Seg Neutrophils # 10.5 H (1.8-7.7) K/mm3 Magnesium 3.10 H 3.50 H (1.7-2.3) mg/dL 01/03/18 Range/Units 07:17 WBC (4.5-11.0) K/mm3 MCH (28-32) pg Lymph % (Auto) (13.4-35.0) % Lymph # (1.2-5.4) K/mm3 Seg Neutrophils % (40.0-70.0) % Seg Neutrophils # (1.8-7.7) K/mm3 Magnesium 3.50 H (1.7-2.3) mg/dL Assessment and Plan I spoke with the OB team requesting the consult and met with mother. She is 27 years - history of with loss in 2007. She has a history of incompetent cervix and currently has a cerclage in place (09/04/17). Current gestation is 30w 3d. She received a course of BMZ in November and received a rescue dose this admission. She is on 17-OH progesterone. I explained to mother the need for NICU admission for prematurity and the possibility of non-invasive respiratory support, IV nutrition, NG/OG feeds and monitoring temperature regulation. We discussed the risk of infection and the importance of providing breast milk for nutrition and I encouraged mother to start pumping breast milk as soon as possible after baby is born. Mother expressed understanding of the information provided and had no follow up questions. I encouraged her to call the NICU with questions. Plan; Agree with steroids Call NICU with questions Will attend delivery
[2018-01-04 04:22] VITALS: BP 117/60
--- NOTE | 2018-01-04 07:38 | Progress Note ---
Assessment and Plan A: IUP at 30w5d sp 2 doses of betamethasone x (2 separate runs) contractions Incompetent Cervix with cerclage in situ Extremely short cervix- cervical length 3 mm H/o incompetent cervix in prior H/o labor on 17 OH Progesterone injections weekly Obesity Genital Herpes P: HD2 PTC observation Mag sulfate for neuroprotection ( 24 hrs)-completed completed second series of BMZ Discused with Dr. Orlando and stated that if patient is without contractions patient may be d/c d home with f/u Saturday NICU consult appreciated D/C home in stable condition ( continue close surveillance , 17 OH injections Saturday, [facility] appt) Subjective - Subjective Date of service: 01/04/18 Patient reports: movement normal, no new complaints, no loss of fluid, no vaginal bleeding, no contractions Objective - Vital Signs Vital Signs: Vital Signs - 12hr 01/03/18 01/03/18 01/03/18 20:38 20:46 21:01 Temperature 98.6 F Pulse Rate 91 H 93 H Blood Pressure 149/66 135/65 01/04/18 01/04/18 04:26 05:00 Temperature 98.1 F Pulse Rate 88 Blood Pressure 117/60 - Exam Breasts: normal Cardiovascular: Regular rate, Normal S1 Lungs: Clear to auscultation, Normal air movement Abdomen: Present: normal appearance, soft, normal bowel sounds. Absent: distention, tenderness, guarding Vulva: both: normal Uterus: Present: normal, firm. Absent: bogginess, tenderness FHR: category 1 Uterine Contraction Pattern: Absent Uterine Tone Measurement Phase: Resting Extremities: normal Deep Tendon Reflex Grade: Normal +2 - Labs Labs: Abnormal Labs 01/02/18 01/02/18 01/03/18 18:15 19:09 01:21 WBC 11.9 H MCH 26 L Lymph % (Auto) 8.6 L Lymph # 1.0 L Seg Neutrophils % 88.2 H Seg Neutrophils # 10.5 H Magnesium 3.10 H 3.50 H 01/03/18 01/03/18 07:17 19:17 WBC MCH Lymph % (Auto) Lymph # Seg Neutrophils % Seg Neutrophils # Magnesium 3.50 H 2.80 H Laboratory Results - last 24 hr 01/03/18 01/03/18 07:17 19:17 Magnesium 3.50 H 2.80 H
--- NOTE | 2018-01-04 08:08 | Discharge Summary ---
Providers - Providers Date of Admission: 01/03/18 11:31 Date of discharge: 01/04/18 Attending physician: BOWEN SUBRAMANIAN 01/02/18 14:38 Consult to Physician [CONS] Routine Comment: Consulting Provider: DANNA XAVIER Physician Instructions: + FFN Reason For Exam: 30 wks,incomeptent cervix, cerclage, ctx Primary care physician: BOWEN SUBRAMANIAN Hospitalization Reason for admission: IUP - , labor, other (incompotent cervix ) Discharge diagnosis: other Hospital course: Patient admitted to labor and delivery for close evaluation. Patient has hx of incompotent cervix cerclage in situ. contractions. She was admitted for monitor. She received 2 doses of betamethasone. She received 24 hrs of mag for neuroprotection. She had a MFM consult on the floor. She had no contractions and discharged stable to follow up in [address] Subramanian. She will recieve 17 P on Saturday with Dr. Subramanian in clinic. MFM Dr. Orlando agrees with plan and will follow on outpatient. Condition at discharge: Good Disposition: DC-01 TO HOME OR SELFCARE Plan - Provider Discharge Summary Activity: routine, no sex for 6 weeks, no strenuous exercise Diet: routine Additional instructions: [] Smoking cessation referral if applicable(refer to patient education folder for contact #) [] Refer to [facility]'s [facility] Booklet Call your doctor immediately for: * Fever > 100.5 * Heavy vaginal bleeding ( >1 pad per hour) * Severe persistent headache * Shortness of breath * Reddened, hot, painful area to leg or breast * Drainage or odor from incision. * Keep incision clean and dry at all times and follow doctor's instructions regarding bathing/showering - Follow up plan Follow up: BOWEN SUBRAMANIAN MD [Primary Care Provider] - 48 Hours
== END 2018-01-04 09:55 | disposition home or self-care (01) | DRG 778 ==
LOC: LD 11:31 → INTOOBSV 13:21 → LD 13:21 → OBSVTOIN 01-03 11:31
PROVIDERS: ADMIT Obstetrics & Gynecology; ATTEND Obstetrics & Gynecology
DX: O60.03 Preterm labor without delivery, third trimester (principal); Z3A.30 30 weeks gestation of pregnancy; O34.33 Maternal care for cervical incompetence, third trimester; O99.213 Obesity complicating pregnancy, third trimester; E66.9 Obesity, unspecified; O98.313 Other infections with a predominantly sexual mode of transmission complicating pregnancy, third trimester; A60.00 Herpesviral infection of urogenital system, unspecified; Z91.040 Latex allergy status; Z91.048 Other nonmedicinal substance allergy status; O26.873 Cervical shortening, third trimester; Z68.36 Body mass index [BMI] 36.0-36.9, adult
CPT/HCPCS: 36415; 76816; 76817; 76819; 76830; 81001; 83735; 85025; 86850; 86900; 86901; G0378; G0379; J0702; J3475; J7120

== ENCOUNTER 2018-01-13 11:52 | Outpatient (CLI) | payer MEDICAID ==
[2018-01-13] MEDS ORDERED: LACTATED RINGERS 500 ML IV ONE (12:43)
--- NOTE | 2018-01-13 15:45 | Ultrasound Report ---
BIOPHYSICAL PROFILE: tachycardia. 2 - breathing movements 2 - movements 2 - posture and tone 2 - Qualitative amniotic fluid volume 8 - TOTAL SCORE OF POSSIBLE 8 Heart Rate (bpm) 143 Estimated age 32 weeks 0 days.
[2018-01-16 00:25] VITALS: BP 118/53
== END 2018-01-13 15:01 | disposition home or self-care (01) ==
LOC: TRG 11:52
PROVIDERS: ATTEND Obstetrics & Gynecology
DX: O47.03 False labor before 37 completed weeks of gestation, third trimester (principal); Z3A.32 32 weeks gestation of pregnancy
CPT/HCPCS: 59025; 76819

== ENCOUNTER 2018-03-18 23:57 | Emergency (ER) | payer MEDICAID ==
[2018-03-19 00:26] VITALS: BP 141/88
[2018-03-19] MEDS ORDERED: LIDOCAINE VISCOUS 2% PO ONE (00:41)
[2018-03-19] MEDS ORDERED: ALUM-MAG HYDROX-SIMETH 200-200-20MG/5ML PO ONE (00:42)
[2018-03-19 01:32] LABS: Basophils # (Auto) 0.1 K/mm3 (0.0-0.1); Basophils % (Auto) 0.4 % (0.0-1.8); Eosinophils # (Auto) 0.1 K/mm3 (0.0-0.4); Eosinophils % (Auto) 0.7 % (0.0-4.3); Hematocrit 39.2 % (30.3-42.9); Hemoglobin 12.8 gm/dl (10.1-14.3); Lymphocytes # (Auto) 3.2 K/mm3 (1.2-5.4); Mean Corpuscular HGB Conc 33 % (30-34); Mean Corpuscular Volume 77 fl (79-97); Monocytes % (Auto) 5.8 % (0.0-7.3); Platelet Count 407 K/mm3 (140-440); Red Blood Count 5.08 M/mm3 (3.65-5.03); Red Cell Distribution Width 17.3 % (13.2-15.2)
[2018-03-19 01:34] LABS: Mean Corpuscular Hemoglobin 25 pg (28-32)
[2018-03-19 01:50] LABS: Alanine Aminotransferase 28 units/L (7-56); Albumin 4.4 g/dL (3.9-5); BUN/Creatinine Ratio 21; Blood Urea Nitrogen 15 mg/dL (7-17); Calcium 9.7 mg/dL (8.4-10.2); Hemolysis Index 1; Lipase 23 units/L (13-60)
[2018-03-19 06:08] LABS: Bilirubin,Urine NEG (Negative); Blood,Urine NEG (Negative); Color,Urine Yellow (Yellow); Protein,Urine <15 mg/dL mg/dL (Negative); RBC,Urine < 1.0 /HPF (0.0-6.0); Urobilinogen,Urine < 2.0 mg/dL (<2.0)
--- NOTE | 2018-03-19 06:50 | Emergency Department Report ---
ED General Adult HPI - General Chief complaint: Abdominal Pain Stated complaint: ABD PAIN Time Seen by Provider: 03/19/18 06:42 Source: patient Mode of arrival: Ambulatory Limitations: No Limitations - History of Present Illness Initial comments: Patient presents to the emergency department with a chief complaint of right upper quadrant abdominal pain and epigastric pain that she describes as burning that started last night. Patient does endorse some nausea with the symptoms but denies any vomiting. Patient states that she A+ left side with lots of cheese in it. Patient states currently she has abdominal pain free. There are no other associated symptoms or complaints. -: Sudden Location: abdomen Radiation: non-radiation Severity scale (0 -10): 7 (at its peak now completely resolved) Quality: burning Consistency: now resolved Improves with: none Worsens with: none Associated Symptoms: denies other symptoms Treatments Prior to Arrival: none - Related Data Previous Rx's Medication Instructions Recorded Last Taken Type Docusate Sodium [Colace] 100 mg PO BID PRN #30 capsule 01/17/18 Unknown Rx Ferrous Sulfate 325 mg PO BID #60 tablet.dr 01/17/18 Unknown Rx Ibuprofen [Motrin] 600 mg PO Q8H PRN #30 tablet 01/17/18 Unknown Rx oxyCODONE /ACETAMINOPHEN [Percocet 1 tab PO Q6HR PRN #30 tablet 01/17/18 Unknown Rx 5/325] Sucralfate [Carafate] 1 gm PO Q6HR PRN #180 oral.susp 03/19/18 Unknown Rx Allergies Allergy/AdvReac Type Severity Reaction Status Date / Time Latex, Natural Rubber Allergy Rash Verified 12/03/14 13:40 ED Review of Systems ROS: Stated complaint: ABD PAIN Other details as noted in HPI Comment: All other systems reviewed and negative Constitutional: denies: chills, fever Eyes: denies: eye pain, eye discharge, vision change ENT: denies: ear pain, throat pain Respiratory: denies: cough, shortness of breath, wheezing Cardiovascular: denies: chest pain, palpitations Endocrine: no symptoms reported Gastrointestinal: denies: abdominal pain, nausea, diarrhea Genitourinary: denies: urgency, dysuria, discharge Musculoskeletal: denies: back pain, joint swelling, arthralgia Skin: denies: rash, lesions Neurological: denies: headache, weakness, paresthesias Psychiatric: denies: anxiety, depression Hematological/Lymphatic: denies: easy bleeding, easy bruising ED Past Medical Hx - Past Medical History Previous Medical History?: No Hx Hypertension: No Hx Congestive Heart Failure: No Hx Diabetes: No Hx Deep Vein Thrombosis: No Hx Renal Disease: No Hx Sickle Cell Disease: No Hx Seizures: No Hx Asthma: No Hx COPD: No Hx HIV: No Additional medical history: 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 - Surgical History Past Surgical History?: No - Social History Smoking Status: Never Smoker Substance Use Type: None - Medications Home Medications: Home Medications Medication Instructions Recorded Confirmed Last Taken Type Docusate Sodium [Colace] 100 mg PO BID PRN #30 capsule 01/17/18 Unknown Rx Ferrous Sulfate 325 mg PO BID #60 tablet.dr 01/17/18 Unknown Rx Ibuprofen [Motrin] 600 mg PO Q8H PRN #30 tablet 01/17/18 Unknown Rx oxyCODONE /ACETAMINOPHEN [Percocet 1 tab PO Q6HR PRN #30 tablet 01/17/18 Unknown Rx 5/325] Sucralfate [Carafate] 1 gm PO Q6HR PRN #180 oral.susp 03/19/18 Unknown Rx ED Physical Exam - General Limitations: No Limitations General appearance: alert, in no apparent distress - Head Head exam: Present: atraumatic, normocephalic - Eye Eye exam: Present: normal appearance - ENT ENT exam: Present: mucous membranes moist - Neck Neck exam: Present: normal inspection - Respiratory Respiratory exam: Present: normal lung sounds bilaterally. Absent: respiratory distress, wheezes, rales - Cardiovascular Cardiovascular Exam: Present: regular rate, normal rhythm. Absent: systolic murmur, diastolic murmur, rubs, gallop - GI/Abdominal GI/Abdominal exam: Present: soft, normal bowel sounds. Absent: distended, tenderness - Extremities Exam Extremities exam: Present: normal inspection - Back Exam Back exam: Present: normal inspection - Neurological Exam Neurological exam: Present: alert, oriented X3, CN II-XII intact. Absent: motor sensory deficit - Psychiatric Psychiatric exam: Present: normal affect, normal mood - Skin Skin exam: Present: warm, dry, intact, normal color. Absent: rash ED Course Vital Signs 03/19/18 00:23 Temperature 98.4 F Pulse Rate 77 Respiratory 16 Rate Blood Pressure 141/88 O2 Sat by Pulse 99 Oximetry ED Medical Decision Making - Lab Data Result diagrams: 03/19/18 01:11 03/19/18 01:11 - Medical Decision Making Review of ultrasound does not show any thickening of the gallbladder wall or any pericholecystic fluid that does appear to be what intraluminal stone Discussed results with patient and the need for dietary changes such as a discontinuation of the products and high fatty foods such as ground beef. Critical care attestation.: If time is entered above; I have spent that time in minutes in the direct care of this critically ill patient, excluding procedure time. ED Disposition Clinical Impression: Cholelithiasis Disposition: DC- TO HOME OR SELFCARE Is pt being admited?: No Does the pt Need Aspirin: No Condition: Stable Instructions: Biliary Colic (ED) Additional Instructions: Return if worse Prescriptions: Sucralfate [Carafate] 1 gm PO Q6HR PRN #180 oral.susp PRN Reason: pain Referrals: PRIMARY CARE, [Primary Care Provider] - 3-5 Days DIANA VELAZQUEZ DO [Staff Physician] - 3-5 Days [facility] [Provider Group] - 3-5 Days Time of Disposition: 06:48
--- NOTE | 2018-03-19 06:52 | Ultrasound Report ---
FINAL REPORT PROCEDURE: US ABDOMEN LIMITED TECHNIQUE: Real-time sonography was performed of the with image documentation. CPT 33627 HISTORY: epigastric abdominal pain, nausea vomiting COMPARISON: No prior studies are available for comparison. FINDINGS: There is a stone identified within the slightly distended gallbladder lumen. The common bile duct measures 2 millimeters. Gallbladder wall thickness is 1 millimeter. The portion of the liver, right kidney and pancreas imaged is normal.. IMPRESSION: Cholelithiasis.
== END 2018-03-19 06:50 | disposition home or self-care (01) ==
LOC: ED 23:57
DX: K80.20 Calculus of gallbladder without cholecystitis without obstruction (principal); Z91.040 Latex allergy status; Z91.048 Other nonmedicinal substance allergy status
CPT/HCPCS: 36415; 76705; 80053; 81001; 83690; 85025; 93005; 93010

== ENCOUNTER 2021-08-02 06:06 | Day surgery (SDC) | payer MEDICAID ==
--- NOTE | 2021-08-01 08:40 | History and Physical Report ---
History of Present Illness Date of examination: 05/04/21 Chief complaint: Retained Nexplanon History of present illness: Pt is a 31 year old -[place] female who presents for Nexplanon removal to expiration of device effectiveness and inability to palpate Nexplanon in office. Nexplanon initially placed on 03/12/2018. Nexplanon location in left arm confirmed by Xray on 04/25/21. Plan today for joint procedure with General Surgery for excision of soft tissue mass in right axilla. 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 placement and removal ) Family/Genetic History: none Social history: no significant social history - Obstetrical History : 4 Para: 2 Hx # Term Pregnancies: 0 Number of Pregnancies: 2 Spontaneous Abortions: 2 Induced : 0 Number of Living Children: 1 Medications and Allergies Allergies Allergy/AdvReac Type Severity Reaction Status Date / Time Latex, Natural Rubber Allergy Rash Verified 06/26/21 14:57 Home Medications Medication Instructions Recorded Confirmed Last Taken Type No Known Home Medications [No 06/26/21 07/17/21 Unknown History Reported Home Medications] Review of Systems All systems: negative - Physical Exam Breasts: Positive: deferred Abdomen: Positive: soft (obese) Extremities: Positive: normal Results All other labs normal. Assessment and Plan A: Retained Nexplanon Device Morbid Obesity Right axillary mass P: Proceed with exam under anesthesia, excision of Nexplanon and other indicated procedures by Gynecology team; excision of right axillary mass by General Surgery team
[~2021-08-02 06:06] MED LIST: LACTATED RINGERS 1,000 ML IV SCH; ceFAZolin/Water 2 GM/20 ML 2 GM/20 ML SYRINGE IV NR
[2021-08-02] MEDS ORDERED: LIDOCAINE MPF (2%) 20 MG/1 ML VIAL 5 ML ONE (07:30)
[2021-08-02] MEDS ORDERED: dexAMETHasone 20 MG/5 ML VIAL ONE (07:30)
[2021-08-02] MEDS ORDERED: ONDANSETRON 4 MG/2 ML INJ ONE (07:30)
[2021-08-02] MEDS ORDERED: MIDAZOLAM 2 MG/2 ML INJ ONE ×2 (07:31→08:26)
[2021-08-02] MEDS ORDERED: fentaNYL 100 MCG/2 ML INJ ONE (07:31)
[2021-08-02] MEDS ORDERED: propofoL 200 MG/20 ML VIAL IV ONE (07:32)
[2021-08-02] MEDS ORDERED: BUPIVACAINE/PF (0.5%) 5 MG/1 ML 30 ML VIAL INFILTRATI ONE ×2 (07:45→09:17)
[2021-08-02] MEDS ORDERED: LIDOCAINE (1%) 10 MG/1 ML VIAL 20 ML MDV ONE ×2 (07:45→08:44)
--- NOTE | 2021-08-02 07:47 | Anesthesia Day of Surgery ---
Anesthesia Day of Surgery - Day of Surgery Patient Examined: Yes Patient H&P Reviewed: Yes Patient is NPO: Yes
--- NOTE | 2021-08-02 07:47 | Anesthesia Consultation ---
Anesthesia Consult and Med Hx Date of service: 08/02/21 - Airway Anesthetic Teeth Evaluation: Chipped ROM Head & Neck: Adequate Mental/Hyoid Distance: Adequate Mallampati Class: Class II Intubation Access Assessment: Good - Pulmonary Exam CTA: Yes - Cardiac Exam Cardiac Exam: RRR - Pre-Operative Health Status ASA Pre-Surgery Classification: ASA3 Proposed Anesthetic Plan: General - Pulmonary Hx Smoking: No Hx Asthma: No Hx Respiratory Symptoms: No SOB: No COPD: No Home Oxygen Therapy: No Hx Pneumonia: Yes (WALKING PNEUMONIA- RESOLVED) Hx Sleep Apnea: No (SOWMYA PRE SCREEN LOW RISK) - Cardiovascular System Hx Hypertension: No Hx Coronary Artery Disease: No Hx Heart Attack/AMI: No Hx Angina: No Hx Percutaneous Transluminal Coronary Angioplasty (PTCA): No Hx Cardia Arrhythmia: No Hx Pacemaker: No Hx Internal Defibrillator: No Hx Valvular Heart Disease: No Hx Heart Murmur: No Hx Peripheral Vascular Disease: No - Central Nervous System Hx Neuromuscular Disorder: No Hx Seizures: Yes (from previous head injury, last seizure ~2014) CVA: No Hx Back Pain: No Hx Psychiatric Problems: No - Gastrointestinal Hx Ulcer: No Hx Gastroesophageal Reflux Disease: Yes (while ) - Endocrine Hx Renal Disease: No Hx End Stage Renal Disease: No Hx Cirrhosis: No Hx Liver Disease: No Hx Insulin Dependent Diabetes: No Hx Non-Insulin Dependent Diabetes: No Hx Thyroid Disease: No Hx Hypothyroidism: No Hx Hyperthyroidism: No - Other Systems Hx Alcohol Use: Yes (OCC. VODKA) Hx Substance Use: No Hx Cancer: No Hx Obesity: Yes
[2021-08-02] MEDS ORDERED: HYDROmorphone 1 MG/1 ML INJ IV PRN ×2 (08:30→09:00)
[2021-08-02] MEDS ORDERED: ONDANSETRON 4 MG/2 ML INJ IV PRN (09:00)
--- NOTE | 2021-08-02 09:09 | Operative Report ---
Operative Report Operative Report: Date of procedure: August 02, 2021 Preoperative diagnosis: 1) Retained Nexplanon Device 2) Morbid Obesity Postoperative diagnosis: Same Procedure: Excision of Nexplanon device Surgeon: Erin Subramanian M.D. Anesthesia: General with LMA Findings: 1) Nexplanon localized in left forearm by ultrasound Estimated blood loss: minimal Specimens: Nexplanon to pathology Complications: None. Disposition: Stable to PACU Indications for procedure: This patient is a 31 year old -[place] female presents for Nexplanon removal under ultrasound guidance after device was unable to be palpated digitally. Operation in detail: After the risks, benefits, alternatives and complications of the procedure were explained to the patient, she gave informed consent for the procedure. She was subsequently taken to the operating room with her IV noted to be running well and placed in the dorsal supine position with sequential compression devices functioning. General anesthesia was then induced without difficulty. The patient was then prepped and draped in normal sterile fashion. A timeout was then performed. Ultrasound was used to locate the Nexplanon implant in the left forearm. A 5 mm inicision was made parallel to the Nexplanon implant at the distal end of the device. A curve hemostat was used to grasp the Nexplanon and remove it with gentle traction. The subcutaneous tissue was reapproximated with a figure of eight of 3-0 Monocryl. The skin was reapproximated with skin glue. A band-aid w as placed over the incision, followed by 2x2 gauze, and a pressure dressing. At this time the procedure was ended. All instrument, lap and needle counts are correct x 2. At this time, Dr Okeefe continued the remainder of her right axillary mass dissection. Please see separate operative note for details.
[2021-08-02] MEDS ORDERED: LIDOCAINE (1%) 10 MG/1 ML VIAL 20 ML MDV INFILTRATI ONE (09:18)
[2021-08-02] MEDS ORDERED: SODIUM CHLORIDE 0.9% IRR 1,500 ML BOTTLE IR ONE (09:18)
--- NOTE | 2021-08-02 09:27 | Short Stay Summary ---
Short Stay Documentation Date of service: 08/02/21 - History Principal diagnosis: right axillary soft tissue mass H&P: obtained from office Social history: no significant social history - Allergies and Medications Current Medications: Allergies Latex, Natural Rubber Allergy (Verified 06/26/21 14:57) Rash hives Home Medications Medication Instructions Recorded Confirmed Last Taken Type No Known Home Medications [No 06/26/21 07/17/21 Unknown History Reported Home Medications] Active Medications Hydromorphone HCl (Hydromorphone 1 Mg/1 Ml Inj) 0.25 mg IV Q10MIN PRN PRN Reason: Pain, Moderate (4-6) Stop: 08/02/21 17:00 Hydromorphone HCl (Hydromorphone 1 Mg/1 Ml Inj) 0.5 mg IV Q10MIN PRN PRN Reason: Pain , Severe (7-10) Stop: 08/02/21 17:00 Lactated Ringer's (Lactated Ringers) 1,000 mls @ 75 mls/hr IV DIRECT OLMAN Last Admin: 08/02/21 07:00 Dose: 75 mls/hr Cefazolin Sodium (Ancef/Sterile Water 2 Gm/20 Ml) 2 gm in 20 mls @ 80 mls/hr IV PREOP NR; Protocol Stop: 08/02/21 21:00 Ondansetron HCl (Ondansetron 4 Mg/2 Ml Inj) 4 mg IV ONCE PRN PRN Reason: Nausea And Vomiting Stop: 08/02/21 17:00 - Physical exam Breasts: deferred - Brief post op/procedure progress note Date of procedure: 08/02/21 Pre-op diagnosis: right axilla soft tissue mass Post-op diagnosis: same Procedure: excision right axilla soft tissue mass and redundant skin Anesthesia: GETA, local Findings: soft tissue mass of right axilla with overlying redundant skin Surgeon: DIANA VELAZQUEZ Estimated blood loss: minimal Pathology: list (soft tissue mass right axilla - marked margins - long lateral, short superior) Specimen disposition: to lab Condition: stable - Hospital course Hospital course: Pt observed in PACU and discharged to home in stable condition when criteria met - Disposition Condition at discharge: Good Disposition: 01 HOME / SELF CARE / HOMELESS Short Stay Discharge Plan Activity: other (avoid activies that will lead to excessive sweating, no strenuous exercise for 2 weeks) Diet: regular Wound: open to air, per your surgeon's advice Additional Instructions: See printed discharge instructions Follow up with: PRIMARY CARE, [Primary Care Provider] - 7 Days BOWEN NOEL MD [Staff Physician] - 7 Days DIANA VELAZQUEZ DO [Staff Physician] - 14 Days Prescriptions: HYDROcodone/APAP 5-325 [[place] 5/325] 1 each PO Q6HR PRN #10 tablet PRN Reason: Pain , Severe (7-10)
--- NOTE | 2021-08-02 09:36 | Ultrasound Report ---
US extremity nonvascular LT INDICATION: NEXPLANON REMOVAL. COMPARISON: None available. FINDINGS: Images obtained during Nexplanon removal from the left upper arm. See operative note for full details . Signer Name: Bryan Kim MD Signed: 08/02/2021 9:32 AM Workstation Name: [id number]
[2021-08-02 10:24] VITALS: BP 131/67
--- NOTE | 2021-08-02 17:07 | Post Anesthesia Evaluation ---
- Post Anesthesia Evaluation Patient Participated: Yes Airway Patent: Yes Stable Respiratory Function: Yes Nausea/Vomiting: No Temp > 96.8F: Yes Pain Manageable: Yes Adequeate Hydration: Yes Anesthesia Complications: No Block Receding Appropriately: Not Applicable Patient on Ventilator: No
== END 2021-08-02 11:00 | disposition home or self-care (01) ==
LOC: OR 06:06
PROVIDERS: ATTEND Obstetrics & Gynecology
DX: Z30.49 Encounter for surveillance of other contraceptives (principal); E66.01 Morbid (severe) obesity due to excess calories; K21.9 Gastro-esophageal reflux disease without esophagitis; Z72.89 Other problems related to lifestyle; Z91.040 Latex allergy status; Z79.899 Other long term (current) drug therapy; Z87.01 Personal history of pneumonia (recurrent); Z98.890 Other specified postprocedural states; Z68.41 Body mass index [BMI] 40.0-44.9, adult
CPT/HCPCS: 11982; 76881; 88300; 88305; J0690; J1100; J2250; J2405; J2704; J3010; J3490; J7120; 88302; 88307